=== PATIENT | female | born 1975 | race Hispanic/Latino ===

== ENCOUNTER 2018-01-03 08:20 | Day surgery (SDC) | payer OTHER ==
[2018-01-02 14:30] VITALS: BP 127/65
[2018-01-02 14:41] LABS: BASOPHILS % (AUTO) 0.8 % (0.0-5.0); EOSINOPHILS % (AUTO) 1.2 % (0.0-8.0); HEMATOCRIT 40.8 % (36-48); LYMPHOCYTES % (AUTO) 22.3 % (21.0-51.0); MEAN CORPUSCULAR HEMOGLOBIN 29.7 pg (27.0-33.0); MEAN CORPUSCULAR HGB CONC 33.9 g/dL (32.0-36.0); MEAN CORPUSCULAR VOLUME 87.9 fL (79-99); MONOCYTES % (AUTO) 4.9 % (3.0-13.0); NEUTROPHILS % (AUTO) 70.8 % (40.0-77.0); PLATELET COUNT (AUTO) 321 K/uL (130-400); RED BLOOD CELL COUNT(AUTO) 4.64 MIL/uL (4.00-5.50); RED CELL DISTRIBUTION WIDTH 13.1 % (11.0-15.5); WHITE BLOOD COUNT (AUTO) 8.3 K/uL (4.8-10.8)
[2018-01-02] MEDS: CEFAZOLIN SODIUM 1 GM VIAL IVP SCH (16:00)
[2018-01-03] VITALS (22 sets, daily range): BP systolic 91–145; BP diastolic 48–84
[~2018-01-03] VITALS: Ht 165.1 cm; Wt 77.0 kg
[~2018-01-03 08:20] MED LIST: LACTATED RINGERS 1000ML 1,000 ML IV SCH
[2018-01-03] MEDS ORDERED: LIDOCAINE PF 2% 5ML ABBOJECT ONE (09:21)
[2018-01-03] MEDS ORDERED: PROPOFOL 10 MG/ML 20ML VIAL IV ONE (09:21)
[2018-01-03] MEDS ORDERED: DEXAMETHASONE SOD PHOSPHATE 10MG/ML 1ML VIAL ONE (09:21)
[2018-01-03] MEDS ORDERED: MIDAZOLAM HCL 1 MG/ML 2ML VIAL ONE (09:21)
[2018-01-03] MEDS ORDERED: SUCCINYLCHOLINE 200MG/10ML SYR ONE (09:21)
[2018-01-03] MEDS ORDERED: ONDANSETRON HCL 4 MG/2 ML VIAL ONE (09:21)
[2018-01-03] MEDS ORDERED: FENTANYL CITRATE PF 50 MCG/1 ML 2ML VIAL ONE ×3 (09:22→11:11)
[2018-01-03] MEDS: CEFAZOLIN SODIUM 1 GM VIAL IVP SCH (09:45)
[2018-01-03] MEDS ORDERED: CALDOLOR 800MG+NS 250ML 250 ML IV ONE (09:53)
[2018-01-03] MEDS ORDERED: MEPERIDINE-PF 50 MG/ML SYG ONE (10:42)
== END 2018-01-03 12:35 | disposition home or self-care (01) ==
LOC: DAH 08:20
PROVIDERS: ATTEND Obstetrics & Gynecology
DX: N92.0 Excessive and frequent menstruation with regular cycle (principal); K21.9 Gastro-esophageal reflux disease without esophagitis
CPT/HCPCS: 36415; 58563; 84703; 85025; 86850; 86900; 86901; 88305; A4218; A4315; A4351; A4355; A4600; J0330; J0690; J1100; J1741; J2001; J2175; J2250; J2405; J2704; J3010 ×3; J7030; J7120